=== PATIENT | female | born 1965 | race African-American/Black ===

== ENCOUNTER 2017-03-12 16:06 | Emergency (ER) | payer SELFPAY ==
[~2017-03-12 16:06] MED LIST: ALLERGY PILL; BENICAR HCT1 TA2 PO; COREG12 PO; DIAM250B PO; DIOVAN320 MG PO; ESTRADIOL OR; NORCO1 TAB PO; NORV10 PO; VYTORIN 10/20 T1 TAB PO
== END 2017-03-12 18:42 | disposition home or self-care (01) ==
LOC: ER 16:06
DX: J02.9 Acute pharyngitis, unspecified (principal); I10 Essential (primary) hypertension; E11.9 Type 2 diabetes mellitus without complications; Z79.899 Other long term (current) drug therapy
CPT/HCPCS: 87070; 87880; 93005; 96372; 99284; A9270-GY; J1885